=== PATIENT | female | born 1980 | race Two or more races ===

== ENCOUNTER 2018-07-29 00:37 | Emergency (ER) | payer OTHER ==
[2018-07-29 00:56] VITALS: TEMP 98.8; BMI 30.8
--- NOTE | 2018-07-29 01:11 | PDOC ---
Attending Attestation - HPI HPI: 07/29/18 01:15 The patient is a 37 year old female with no significant PMH who presents to the emergency department with irregular menstrual cycle. Patient states her menstrual periods are usually irregular and last for 5 days at a time. Patient reports her current menstrual period is lasting longer than usual, and is now on day 8. Her previous menstrual period was on July 03. Patient is complaining of associated right lower quadrant pain and urinary frequency. Patient denies any sexual activity. The patient denies chest pain, shortness of breath, headache and dizziness. Denies fever, chills, nausea, vomit, diarrhea and constipation. Denies vaginal discharge, dysuria, urgency and hematuria. Allergies: NKA Past surgical history: None reported. Social history: No reported alcohol, drug or cigarette use. <Michelle Canales - Last Filed: 07/29/18 01:15> - Resident Resident Name: Winifred Osei - ED Attending Attestation I have performed the following: I have examined & evaluated the patient, The case was reviewed & discussed with the resident, I agree w/resident's findings & plan - Physicial Exam PE: 07/29/18 03:05 Agree with resident exam - Medical Decision Making 07/29/18 03:05 Patient Name: DIGNA CRAIN THIS IS A PRELIMINARY REPORT FROM [facility] DATE OF SERVICE: 2018-07-29 01:13:14 IMAGES: 29 EXAM: ULTRASOUND PELVIS, COMPLETE AND DUPLEX SCAN PELVIS, COMPLETE No right ovarian torsion. Color flow with appropriate arterial and venous waveforms. 2.4 cm complex follicle right ovary. Left ovary not seen. No free fluid. Normal uterus. Endometrial stripe complex 4 mm thick. Unremarkable visualized portion of bladder 07/29/18 03:09 Pt will go home with a diagnosis of Dysfunctional Uterine Bleed. She will be asked to follow with [facility]. Labs are normal UCG negative. UA pending. <Keily Ly - Last Filed: 07/29/18 03:10>
--- NOTE | 2018-07-29 01:30 | PDOC ---
History of Present Illness <Keily Ly - Last Filed: 07/29/18 03:05> - History of Present Illness Initial Comments: 07/29/18 01:26 The patient is a 37 year old female with a PMH of DUB who presents to the ED c/ o vaginal bleeding. Patient states her menstrual cycle started on 06/20 and she has been bleeding since that time. Notes previous LMP was 07/03 and lasted her normal 5 days. Endorse associated suprapubic and LLQ cramping. Denies fevers/chills, dysuria/hematuria, increased urgency/frequency. No lifetime h/o sexual activity. NKDA Surgical: L hip dysplasia repair (childhood) Social: denies toxic habits PMD: <Winifred Osei - Last Filed: 07/29/18 03:20> - General Chief Complaint: Vaginal Bleeding Stated Complaint: VAGINAL BLEED Time Seen by Provider: 07/29/18 00:53 Past History <Keily Ly - Last Filed: 07/29/18 03:05> - Past Medical History COPD: No - Suicide/Smoking/Psychosocial Hx Smoking History: Never smoked <Winifred Osei - Last Filed: 07/29/18 03:20> - Past Medical History Allergies/Adverse Reactions: Allergies Allergy/AdvReac Type Severity Reaction Status Date / Time No Known Allergies Allergy Verified 07/29/18 00:51 Home Medications: Ambulatory Orders NK [No Known Home Medication] 07/29/18 Review of Systems - Review of Systems Constitutional: No: Chills, Fever Respiratory: No: Shortness of Breath Cardiac (ROS): No: Chest Pain, Lightheadedness, Palpitations, Syncope ABD/GI: Yes: Abdominal cramping. No: Constipated, Diarrhea, Nausea, Vomiting : Yes: Other (vaginal bleeding). No: Burning, Dysuria Psychiatric: No: Anxiety, Depression <Winifred Osei - Last Filed: 07/29/18 03:20> *Physical Exam - Vital Signs Last Vital Signs Temp Pulse Resp BP Pulse Ox 98.8 F 88 18 123/79 100 07/29/18 00:49 07/29/18 00:49 07/29/18 00:49 07/29/18 00:49 07/29/18 00:49 <Keily Ly - Last Filed: 07/29/18 03:05> - Vital Signs Last Vital Signs Temp Pulse Resp BP Pulse Ox 98.8 F 88 18 123/79 100 07/29/18 00:49 07/29/18 00:49 07/29/18 00:49 07/29/18 00:49 07/29/18 00:49 - Physical Exam General Appearance: Yes: Nourished, Appropriately Dressed HEENT: positive: Normal Voice, Hearing Grossly Normal Neck: positive: Trachea midline, Supple Respiratory/Chest: positive: Lungs Clear, Normal Breath Sounds Cardiovascular: positive: S1, S2. negative: Edema, JVD Gastrointestinal/Abdominal: positive: Normal Bowel Sounds, Soft Musculoskeletal: negative: CVA Tenderness (R), CVA Tenderness (L) Extremity: positive: Normal Capillary Refill, Normal Inspection Integumentary: positive: Normal Color, Dry, Warm Neurologic: positive: Fully Oriented, Alert <Winifred Osei - Last Filed: 07/29/18 03:20> Moderate Sedation - Procedure Monitoring Vital Signs: Procedure Monitoring Vital Signs Temperature 98.8 F 07/29/18 00:49 Pulse Rate 88 07/29/18 00:49 Respiratory Rate 18 07/29/18 00:49 Blood Pressure 123/79 07/29/18 00:49 O2 Sat by Pulse Oximetry (%) 100 07/29/18 00:49 <Keily Ly - Last Filed: 07/29/18 03:05> - Procedure Monitoring Vital Signs: Procedure Monitoring Vital Signs Temperature 98.8 F 07/29/18 00:49 Pulse Rate 88 07/29/18 00:49 Respiratory Rate 18 07/29/18 00:49 Blood Pressure 123/79 07/29/18 00:49 O2 Sat by Pulse Oximetry (%) 100 07/29/18 00:49 <Winifred Osei - Last Filed: 07/29/18 03:20> ED Treatment Course - LABORATORY CBC & Chemistry Diagram: 07/29/18 02:20 07/29/18 02:20 - ADDITIONAL ORDERS Additional order review: Laboratory Results 07/29/18 07/29/18 07/29/18 02:28 02:20 02:20 PT with INR 12.30 INR 1.04 Sodium 137 Potassium 3.7 Chloride 100 Carbon Dioxide 28 Anion Gap 9 BUN 9 Creatinine 0.6 Creat Clearance w eGFR > 60 Random Glucose 90 Calcium 9.2 Total Bilirubin 0.3 AST 12 L ALT 21 Alkaline Phosphatase 90 Total Protein 8.0 Albumin 4.1 Urine HCG, Qual Negative 07/29/18 02:20 RBC 4.64 MCV 71.4 L MCHC 33.5 RDW 16.1 H MPV 8.0 Neutrophils % 51.5 Lymphocytes % 35.8 Monocytes % 9.3 Eosinophils % 2.9 Basophils % 0.5 - RADIOLOGY Radiology Studies Ordered: Category Date Time Status PELVIC / BLADDER US [US] Stat Ultrasound 07/29/18 01:07 Taken <Keily Ly - Last Filed: 07/29/18 03:05> - LABORATORY CBC & Chemistry Diagram: 07/29/18 02:20 12 02:20 <Winifred Osei - Last Filed: 07/29/18 03:20> Medical Decision Making - Medical Decision Making 07/29/18 01:30 37 year old female with PMH of DUB presents c/o vaginal bleeding. VS Frontal diagnosis: DUB 2/2 to hormone derangement vs fibroids, with threatened AB, ectopic . Will obtain basic labs, abdominal U/S ( patient declines TVUS) urine . Reassess. 07/29/18 03:06 Abdominal U/S shows normal ovaries. No IUP Urine negative 07/29/18 03:12 Hb 11 UA shows 3+ blood As patient remains hemodynamically stable will discharge home with [facility] follow -up. Clinical Impression: Dysfunctional uterine bleeding. I discussed the physical exam findings, ancillary test results and final diagnoses with the patient. I answered all of the patient's questions. The patient was satisfied with the care received and felt comfortable with the discharge plan and treatment plan. The patient will return to the Emergency Department with any new, persistent or worsening symptoms. <Winifred Osei - Last Filed: 07/29/18 03:20> *DC/Admit/Observation/Transfer - Discharge Dispostion Decision to Admit order: No <Keily Ly - Last Filed: 07/29/18 03:05> <Winifred Osei - Last Filed: 07/29/18 03:20> Diagnosis at time of Disposition: Dysfunctional uterine bleeding - Discharge Dispostion Disposition: HOME Condition at time of disposition: Stable - Referrals Referrals: ON STAFF,NOT [Primary Care Provider] - Lupe Jeronimo MD [Staff Physician] - - Patient Instructions Additional Instructions: You were evaluated today for vaginal bleeding. All of your labs and an ultrasound show no concerning findings. You can take Motrin (up to 3200 mg daily) for your pain. Please make an appointment with an digital forensics investigator Dr. Jeronimo (contact information included) for further evaluation. Your care is not complete until you are evaluated by a digital forensics investigator. Return to the Emergency Department for any new/worsening/concerning symptoms. - Post Discharge Activity
[2018-07-29 02:28] LABS: BASO % 0.5 % (0-2.0); EOS % 2.9 % (0-4.5); HEMATOCRIT 33.1 % (32.4-45.2); HEMOGLOBIN 11.1 GM/dL (10.7-15.3); LYMPH % 35.8 % (8-40); MCH 23.9 pg (25.7-33.7); MCHC 33.5 g/dl (32.0-36.0); MEAN CELL VOLUME 71.4 fl (80-96); MONO % 9.3 % (3.8-10.2); NEUT % 51.5 % (42.8-82.8); PLATELET COUNT 324 K/MM3 (134-434); RBC 4.64 M/mm3 (3.60-5.2); RDW 16.1 % (11.6-15.6); WHITE BLOOD COUNT 7.6 K/mm3 (4.0-10.0)
[2018-07-29 02:43] LABS: HCG,QUALITATIVE URINE Negative
[2018-07-29 02:50] LABS: INR 1.04 (0.83-1.09); PROTHROMBIN TIME (PATIENT) 12.3 SEC (9.7-13.0)
[2018-07-29 03:05] LABS: ALBUMIN 4.1 g/dl (3.4-5.0); ALK PHOS 90 U/L (45-117); ANION GAP 9 MMOL/L (8-16); BILIRUBIN,TOTAL 0.3 mg/dL (0.2-1); BLOOD UREA NITROGEN 9 mg/dL (7-18); CALCIUM 9.2 mg/dL (8.5-10.1); CHLORIDE 100 mmol/L (98-107); CO2 28 mmol/L (21-32); CREATININE 0.6 mg/dL (0.55-1.3); GLUCOSE,RANDOM 90 mg/dL (74-106); POTASSIUM 3.7 mmol/L (3.5-5.1); SGOT/AST 12 U/L (15-37); SGPT/ALT 21 U/L (13-61); SODIUM 137 mmol/L (136-145)
[2018-07-29 03:07] LABS: URINE APPEARANCE CLEAR; URINE BILIRUBIN NEGATIVE (<2.0 mg/dL); URINE COLOR RED; URINE GLUCOSE (UA) NEGATIVE (NEGATIVE); URINE KETONE NEGATIVE (NEGATIVE); URINE LEUK ESTERASE NEGATIVE (NEGATIVE); URINE NITRITE NEGATIVE (NEGATIVE); URINE PROTEIN 2+ (NEGATIVE); URINE UROBILINOGEN NEGATIVE mg/dL (0.2-1.0)
[2018-07-29 03:18] LABS: EPI CELLS RARE /HPF (FEW); URINE BACTERIA RARE /hpf (NONE SEEN); URINE MUCUS RARE
[2018-07-29 03:28] VITALS: BP 121/72; PULSE 78
== END 2018-07-29 03:28 | disposition home or self-care (01) ==
LOC: JER 00:37
DX: N93.8 Other specified abnormal uterine and vaginal bleeding (principal)
CPT/HCPCS: 36415; 76856-TC; 80053; 81003; 81015; 84703; 85025; 85610; 99282-25

== ENCOUNTER 2020-08-06 20:56 | Inpatient (IN) | payer OTHER ==
[2020-08-06] MEDS ORDERED: ACETAMINOPHEN 1000 MG/100 ML VIAL (NON FORMULARY) IVPB ONE (21:34)
[2020-08-06] MEDS ORDERED: SODIUM CHLORIDE 1,000 ML IV STA (21:34)
[2020-08-06] MEDS ORDERED: ACETAMINOPHEN INJECTION 100 ML IVPB ONE (22:00)
[2020-08-06] MEDS ORDERED: PIPERACILLIN/TAZOB 4.5 GM 4.5 GM in DEXTROSE 5%-WATER 100 ML IVPB ONE (22:27)
[2020-08-06 22:35] LABS: BASO % 0.3 % (0-2.0); EOS % 0.2 % (0-4.5); HEMATOCRIT 35.5 % (32.4-45.2); LYMPH % 12.8 % (8-40); MCH 22.2 pg (25.7-33.7); MCHC 31.1 g/dl (32.0-36.0); MEAN CELL VOLUME 71.4 fl (80-96); MEAN PLT VOLUME 8.3 fl (7.5-11.1); MONO % 10.1 % (3.8-10.2); NEUT % 76.6 % (42.8-82.8); PLATELET COUNT 615 K/MM3 (134-434); RBC 4.96 M/mm3 (3.60-5.2)
[2020-08-06 22:42] LABS: INR 1.48 (0.83-1.09); PROTHROMBIN TIME (PATIENT) 17.7 SEC (9.7-13.0)
[2020-08-06] MEDS ORDERED: PIPERACILLIN/TAZOB 4.5 GM 4.5 GM/100 ML BAG IVPB ONE (22:42)
[2020-08-06 22:45] LABS: ACTIVATED PTT 28.9 SECONDS (25.2-36.5)
[2020-08-06 22:50] LABS: POTASSIUM 4.2 mmol/L (3.5-5.1)
[2020-08-06 22:52] LABS: ALBUMIN 3.3 g/dl (3.4-5.0); BLOOD UREA NITROGEN 3.5 mg/dL (7-18); CALCIUM 9.1 mg/dL (8.5-10.1); MAGNESIUM 1.9 mg/dL (1.8-2.4)
[2020-08-06 22:56] LABS: CREATININE 0.7 mg/dL (0.55-1.3)
[2020-08-06 22:57] LABS: BILIRUBIN,TOTAL 0.5 mg/dL (0.2-1); TOT PROT 8.2 g/dl (6.4-8.2)
[2020-08-06] MEDS ORDERED: FAMOTIDINE 20 MG/50 ML IVPB 20 MG/50 ML MG IVPB ONE (23:34)
[2020-08-06] MEDS ORDERED: MAG HYDROX/AL HYDROX/SIMETH -MYLANTA- ORAL SUSPENSION PO ONE (23:34)
[2020-08-07] MEDS ORDERED: MAG HYDROX/AL HYDROX/SIMETH 30 ML UNIT-DOSE CUP ONE (00:25)
[2020-08-07] MEDS ORDERED: FAMOTIDINE 20 MG/50 ML IVPB 20 MG/50 ML MG IVPB ONE (00:25)
[2020-08-07] MEDS ORDERED: SODIUM CHLORIDE 1,000 ML IV STA (01:51)
[2020-08-07 02:05] LABS: PH,URINE 5.5 (5.0-8.0); URINE APPEARANCE CLEAR; URINE BILIRUBIN NEGATIVE (NEGATIVE); URINE COLOR YELLOW; URINE GLUCOSE (UA) NEGATIVE (NEGATIVE); URINE KETONE NEGATIVE (NEGATIVE); URINE LEUK ESTERASE NEGATIVE (NEGATIVE); URINE NITRITE NEGATIVE (NEGATIVE); URINE PROTEIN NEGATIVE (NEGATIVE); URINE UROBILINOGEN 0.2 mg/dL (0.2-1.0)
[2020-08-07] MEDS ORDERED: IBUPROFEN 600 MG TABLET (FP) PO ONE ×2 (02:13→02:17)
[2020-08-07] MEDS ORDERED: DOXYCYCLINE HYCLATE 100 MG CAPSULE PO ONE (04:51)
[2020-08-07] MEDS: SODIUM CHLORIDE 1,000 ML IV SCH (05:47)
[2020-08-07 08:19] LABS: HEMATOCRIT 28.9 % (32.4-45.2); HEMOGLOBIN 8.9 GM/dL (10.7-15.3); MCH 21.8 pg (25.7-33.7); MCHC 30.7 g/dl (32.0-36.0); MEAN CELL VOLUME 71.1 fl (80-96); MEAN PLT VOLUME 8.3 fl (7.5-11.1); PLATELET COUNT 445 K/MM3 (134-434); RBC 4.07 M/mm3 (3.60-5.2); RDW 17.4 % (11.6-15.6); WHITE BLOOD COUNT 8.3 K/mm3 (4.0-10.0)
[2020-08-07 08:28] LABS: INR 1.53 (0.83-1.09); PROTHROMBIN TIME (PATIENT) 18.6 SEC (9.7-13.0)
[2020-08-07 08:31] LABS: ACTIVATED PTT 28.1 SECONDS (25.2-36.5); POTASSIUM 3.9 mmol/L (3.5-5.1)
[2020-08-07 08:32] LABS: ALBUMIN 2.6 g/dl (3.4-5.0); CALCIUM 8.1 mg/dL (8.5-10.1)
[2020-08-07 08:35] LABS: CREATININE 0.5 mg/dL (0.55-1.3); PHOSPHOROUS 3.6 mg/dL (2.5-4.9)
[2020-08-07 08:37] LABS: BILIRUBIN,TOTAL 0.5 mg/dL (0.2-1); TOT PROT 6.6 g/dl (6.4-8.2)
[2020-08-07] MEDS ORDERED: PIPERACILLIN/TAZOB 4.5 GM 4.5 GM in DEXTROSE 5%-WATER 100 ML IVPB SCH (09:00)
[2020-08-07] MEDS ORDERED: PIPERACILLIN/TAZOB 4.5 GM 4.5 GM/100 ML BAG IVPB ONE (09:28)
[2020-08-07] MEDS ORDERED: PIPERACILLIN/TAZOB 3.375 GM 3.375 GM/50 ML BAG IVPB ONE (17:26)
[2020-08-07] MEDS: PIPERACILLIN/TAZOB 3.375 GM 3.375 GM in DEXTROSE 5%-WATER - 50 ML IVPB SCH (17:41)
[2020-08-07] MEDS ORDERED: ACETAMINOPHEN INJECTION 100 ML IVPB ONE (18:59)
[2020-08-07] MEDS: ACETAMINOPHEN 1000 MG/100 ML VIAL (NON FORMULARY) IVPB PRN (19:06)
[2020-08-07] MEDS ORDERED: DOXYCYCLINE HYCLATE 100 MG VIAL ONE (21:55)
[2020-08-07] MEDS ORDERED: DEXTROSE 5%-WATER 100 ML IVPB ONE (21:55)
[2020-08-07] MEDS ORDERED: DOXYCYCLINE INJECTION 100 MG in DEXTROSE 5%-WATER - 100 ML IVPB SCH (22:00)
[2020-08-07] MEDS: DOXYCYCLINE INJECTION 100 MG in DEXTROSE 5%-WATER 100 ML IVPB SCH (22:06)
[2020-08-08] MEDS ORDERED: PIPERACILLIN/TAZOBACTAM 3.375 GM VIAL IVPB ONE ×3 (00:46→17:35)
[2020-08-08] MEDS ORDERED: DEXTROSE 5%-WATER - 50 ML IVPB ONE ×3 (00:46→17:36)
[2020-08-08] MEDS: ACETAMINOPHEN 1000 MG/100 ML VIAL (NON FORMULARY) IVPB PRN (01:00)
[2020-08-08] MEDS: PIPERACILLIN/TAZOB 3.375 GM 3.375 GM in DEXTROSE 5%-WATER - 50 ML IVPB SCH ×3 (02:40→18:09)
[2020-08-08] MEDS ORDERED: PIPERACILLIN/TAZOB 4.5 GM 4.5 GM in DEXTROSE 5%-WATER 100 ML IVPB SCH (09:00)
[2020-08-08 09:18] LABS: BASO % 0.4 % (0-2.0); EOS % 1.1 % (0-4.5); HEMATOCRIT 31.5 % (32.4-45.2); HEMOGLOBIN 9.6 GM/dL (10.7-15.3); LYMPH % 24.7 % (8-40); MCH 21.9 pg (25.7-33.7); MCHC 30.7 g/dl (32.0-36.0); MEAN CELL VOLUME 71.5 fl (80-96); MEAN PLT VOLUME 8.1 fl (7.5-11.1); NEUT % 65.8 % (42.8-82.8); PLATELET COUNT 550 K/MM3 (134-434); RDW 18.1 % (11.6-15.6); WHITE BLOOD COUNT 8.4 K/mm3 (4.0-10.0)
[2020-08-08 10:02] LABS: MAGNESIUM 2.1 mg/dL (1.8-2.4)
[2020-08-08 10:05] LABS: CREATININE 0.6 mg/dL (0.55-1.3); PHOSPHOROUS 3.8 mg/dL (2.5-4.9)
[2020-08-08 10:06] LABS: BILIRUBIN,TOTAL 0.6 mg/dL (0.2-1); TOT PROT 7.5 g/dl (6.4-8.2)
[2020-08-08] MEDS ORDERED: DEXTROSE 5%-WATER 100 ML IVPB ONE ×2 (10:26→21:04)
[2020-08-08] MEDS ORDERED: DOXYCYCLINE HYCLATE 100 MG VIAL ONE ×2 (10:26→21:04)
[2020-08-08] MEDS: DOXYCYCLINE INJECTION 100 MG in DEXTROSE 5%-WATER 100 ML IVPB SCH ×2 (10:36→21:22)
[2020-08-08] MEDS: SODIUM CHLORIDE 1,000 ML IV SCH (10:36)
[2020-08-08 10:48] LABS: ANISOCYTOSIS 1+; MACROCYTOSIS 0; PLATELET ESTIMATE INCREASED
[2020-08-08 12:18] LABS: HIV INTERPRETATION NEGATIVE (NEGATIVE)
[2020-08-08 12:29] LABS: BLOOD UREA NITROGEN 2.3 mg/dL (7-18)
[2020-08-09] MEDS ORDERED: DEXTROSE 5%-WATER - 50 ML IVPB ONE ×3 (00:58→17:49)
[2020-08-09] MEDS ORDERED: PIPERACILLIN/TAZOBACTAM 3.375 GM VIAL IVPB ONE ×3 (00:58→17:49)
[2020-08-09] MEDS: PIPERACILLIN/TAZOB 3.375 GM 3.375 GM in DEXTROSE 5%-WATER - 50 ML IVPB SCH ×3 (01:14→17:53)
[2020-08-09] MEDS ORDERED: DOXYCYCLINE HYCLATE 100 MG VIAL ONE ×2 (08:58→21:44)
[2020-08-09] MEDS ORDERED: DEXTROSE 5%-WATER 100 ML IVPB ONE ×2 (08:58→21:44)
[2020-08-09] MEDS: DOXYCYCLINE INJECTION 100 MG in DEXTROSE 5%-WATER 100 ML IVPB SCH ×2 (09:05→21:51)
[2020-08-09] MEDS: SODIUM CHLORIDE 1,000 ML IV SCH (10:19)
[2020-08-09 16:29] VITALS: BMI 29.7
[2020-08-09 16:49] LABS: BASO % 0.6 % (0-2.0); EOS % 1.1 % (0-4.5); HEMATOCRIT 28.4 % (32.4-45.2); LYMPH % 23.2 % (8-40); MCH 22.6 pg (25.7-33.7); MCHC 31.5 g/dl (32.0-36.0); MEAN CELL VOLUME 71.7 fl (80-96); MONO % 8.2 % (3.8-10.2); NEUT % 66.9 % (42.8-82.8); PLATELET COUNT 494 K/MM3 (134-434); RBC 3.97 M/mm3 (3.60-5.2); RDW 17.5 % (11.6-15.6); WHITE BLOOD COUNT 7.2 K/mm3 (4.0-10.0)
[2020-08-09 17:12] LABS: POTASSIUM 3.6 mmol/L (3.5-5.1)
[2020-08-09 17:15] LABS: CALCIUM 8.4 mg/dL (8.5-10.1)
[2020-08-09 17:18] LABS: CREATININE 0.4 mg/dL (0.55-1.3)
[2020-08-09] MEDS: D5-1/2NS+10 MEQ KCL - 10 MEQ/1,000 ML INFUS.BAG IV SCH (18:03)
[2020-08-10] MEDS ORDERED: PIPERACILLIN/TAZOBACTAM 3.375 GM VIAL IVPB ONE ×3 (02:15→17:18)
[2020-08-10] MEDS ORDERED: DEXTROSE 5%-WATER - 50 ML IVPB ONE ×3 (02:16→17:19)
[2020-08-10] MEDS: PIPERACILLIN/TAZOB 3.375 GM 3.375 GM in DEXTROSE 5%-WATER - 50 ML IVPB SCH ×3 (02:21→17:27)
[2020-08-10] MEDS ORDERED: PT OWN MED DRAWER 7, Y5N ONE (09:38)
[2020-08-10] MEDS: ENOXAPARIN NA (PORCINE) 40 MG/0.4 ML DISP.SYRIN SQ SCH (09:49)
[2020-08-10 09:52] LABS: POTASSIUM 3.8 mmol/L (3.5-5.1)
[2020-08-10 09:53] LABS: BASO % 0.6 % (0-2.0); EOS % 1.6 % (0-4.5); HEMATOCRIT 29.1 % (32.4-45.2); HEMOGLOBIN 9.2 GM/dL (10.7-15.3); LYMPH % 20.1 % (8-40); MCH 22.5 pg (25.7-33.7); MCHC 31.8 g/dl (32.0-36.0); MEAN CELL VOLUME 70.8 fl (80-96); MEAN PLT VOLUME 7.7 fl (7.5-11.1); MONO % 8.9 % (3.8-10.2); NEUT % 68.8 % (42.8-82.8); PLATELET COUNT 522 K/MM3 (134-434); RBC 4.11 M/mm3 (3.60-5.2); RDW 17.3 % (11.6-15.6); WHITE BLOOD COUNT 7.3 K/mm3 (4.0-10.0)
[2020-08-10 10:16] LABS: ALBUMIN 2.5 g/dl (3.4-5.0); CALCIUM 8.6 mg/dL (8.5-10.1)
[2020-08-10 10:19] LABS: CREATININE 0.4 mg/dL (0.55-1.3)
[2020-08-10 10:21] LABS: BILIRUBIN,TOTAL 0.6 mg/dL (0.2-1); TOT PROT 6.9 g/dl (6.4-8.2)
[2020-08-10 10:32] LABS: BLOOD UREA NITROGEN 1.4 mg/dL (7-18)
[2020-08-10] MEDS: DOXYCYCLINE INJECTION 100 MG in DEXTROSE 5%-WATER 100 ML IVPB SCH ×2 (12:22→21:38)
[2020-08-10 13:52] LABS: ERYTHROCYTE SEDIMENTATION RATE 87 mm/hr (0-20)
[2020-08-10] MEDS: D5-1/2NS+10 MEQ KCL - 10 MEQ/1,000 ML INFUS.BAG IV SCH (17:47)
[2020-08-10] MEDS ORDERED: DEXTROSE 5%-WATER 100 ML IVPB ONE (21:19)
[2020-08-10] MEDS ORDERED: DOXYCYCLINE HYCLATE 100 MG VIAL ONE (21:19)
[2020-08-11] MEDS ORDERED: PIPERACILLIN/TAZOBACTAM 3.375 GM VIAL IVPB ONE ×3 (02:07→17:01)
[2020-08-11] MEDS ORDERED: DEXTROSE 5%-WATER - 50 ML IVPB ONE ×3 (02:07→17:01)
[2020-08-11] MEDS: PIPERACILLIN/TAZOB 3.375 GM 3.375 GM in DEXTROSE 5%-WATER - 50 ML IVPB SCH ×3 (02:09→18:11)
[2020-08-11 09:38] LABS: BASO % 0.9 % (0-2.0); EOS % 3.5 % (0-4.5); HEMATOCRIT 28.5 % (32.4-45.2); HEMOGLOBIN 9.1 GM/dL (10.7-15.3); LYMPH % 22.2 % (8-40); MCH 22.5 pg (25.7-33.7); MCHC 31.9 g/dl (32.0-36.0); MEAN CELL VOLUME 70.6 fl (80-96); MEAN PLT VOLUME 7.7 fl (7.5-11.1); MONO % 10.8 % (3.8-10.2); NEUT % 62.6 % (42.8-82.8); PLATELET COUNT 499 K/MM3 (134-434); RBC 4.03 M/mm3 (3.60-5.2); RDW 17.6 % (11.6-15.6); WHITE BLOOD COUNT 5.8 K/mm3 (4.0-10.0)
[2020-08-11 09:55] LABS: CHLORIDE 102 mmol/L (98-107); POTASSIUM 3.5 mmol/L (3.5-5.1); SODIUM 137 mmol/L (136-145)
[2020-08-11 09:58] LABS: ALBUMIN 2.6 g/dl (3.4-5.0); CALCIUM 8.6 mg/dL (8.5-10.1)
[2020-08-11 09:59] LABS: ANION GAP 11 MMOL/L (8-16); CO2 25 mmol/L (21-32); GLUCOSE,RANDOM 109 mg/dL (74-106)
[2020-08-11 10:02] LABS: CREATININE 0.4 mg/dL (0.55-1.3); SGOT/AST 9 U/L (15-37); SGPT/ALT 7 U/L (13-61)
[2020-08-11 10:04] LABS: BILIRUBIN,TOTAL 0.8 mg/dL (0.2-1); TOT PROT 6.9 g/dl (6.4-8.2)
[2020-08-11 10:05] LABS: ALK PHOS 58 U/L (45-117)
[2020-08-11 10:07] LABS: BLOOD UREA NITROGEN < 1.0 mg/dL (7-18)
[2020-08-11] MEDS: ENOXAPARIN NA (PORCINE) 40 MG/0.4 ML DISP.SYRIN SQ SCH (10:31)
[2020-08-11] MEDS: DOXYCYCLINE INJECTION 100 MG in DEXTROSE 5%-WATER 100 ML IVPB SCH ×2 (10:31→22:10)
[2020-08-11] MEDS: D5-1/2NS+10 MEQ KCL - 10 MEQ/1,000 ML INFUS.BAG IV SCH ×2 (18:12→20:56)
[2020-08-11] MEDS ORDERED: DOXYCYCLINE HYCLATE 100 MG VIAL ONE (20:49)
[2020-08-11] MEDS ORDERED: DEXTROSE 5%-WATER 100 ML IVPB ONE (20:49)
[2020-08-12] MEDS ORDERED: PIPERACILLIN/TAZOBACTAM 3.375 GM VIAL IVPB ONE ×3 (00:34→16:28)
[2020-08-12] MEDS ORDERED: DEXTROSE 5%-WATER - 50 ML IVPB ONE ×3 (00:35→16:28)
[2020-08-12] MEDS: PIPERACILLIN/TAZOB 3.375 GM 3.375 GM in DEXTROSE 5%-WATER - 50 ML IVPB SCH ×3 (01:00→17:14)
[2020-08-12 09:06] LABS: HEMATOCRIT 29.4 % (32.4-45.2); HEMOGLOBIN 9.4 GM/dL (10.7-15.3); MCH 22.8 pg (25.7-33.7); MCHC 31.9 g/dl (32.0-36.0); MEAN CELL VOLUME 71.6 fl (80-96); MEAN PLT VOLUME 7.8 fl (7.5-11.1); PLATELET COUNT 489 K/MM3 (134-434); RBC 4.11 M/mm3 (3.60-5.2); RDW 17.3 % (11.6-15.6); WHITE BLOOD COUNT 4.8 K/mm3 (4.0-10.0)
[2020-08-12] MEDS ORDERED: DOXYCYCLINE HYCLATE 100 MG VIAL ONE ×2 (09:34→21:00)
[2020-08-12] MEDS ORDERED: DEXTROSE 5%-WATER 100 ML IVPB ONE ×2 (09:34→21:00)
[2020-08-12] MEDS: DOXYCYCLINE INJECTION 100 MG in DEXTROSE 5%-WATER 100 ML IVPB SCH ×2 (09:46→21:19)
[2020-08-12 09:49] LABS: CHLORIDE 106 mmol/L (98-107); POTASSIUM 3.5 mmol/L (3.5-5.1); SODIUM 142 mmol/L (136-145)
[2020-08-12] MEDS: ENOXAPARIN NA (PORCINE) 40 MG/0.4 ML DISP.SYRIN SQ SCH (09:49)
[2020-08-12 10:15] LABS: ALBUMIN 2.6 g/dl (3.4-5.0); CALCIUM 9.1 mg/dL (8.5-10.1)
[2020-08-12 10:16] LABS: ANION GAP 10 MMOL/L (8-16); CO2 25 mmol/L (21-32); GLUCOSE,RANDOM 110 mg/dL (74-106)
[2020-08-12 10:17] LABS: SGOT/AST 10 U/L (15-37); SGPT/ALT 7 U/L (13-61); TOT PROT 7.1 g/dl (6.4-8.2)
[2020-08-12 10:18] LABS: CREATININE 0.5 mg/dL (0.55-1.3)
[2020-08-12 10:19] LABS: ALK PHOS 58 U/L (45-117)
[2020-08-12 10:44] LABS: BILIRUBIN,TOTAL 0.5 mg/dL (0.2-1)
[2020-08-12 11:38] LABS: BLOOD UREA NITROGEN < 1.0 mg/dL (7-18)
[2020-08-12] MEDS ORDERED: ACETAMINOPHEN 1000 MG/100 ML VIAL (NON FORMULARY) IVPB ONE (11:57)
[2020-08-12] MEDS ORDERED: BENZOCAINE/MENTH/CETYLPYRD CL 1 EACH LOZENGE MM ONE (22:29)
[2020-08-13] MEDS ORDERED: PIPERACILLIN/TAZOBACTAM 3.375 GM VIAL IVPB ONE ×3 (00:28→16:47)
[2020-08-13] MEDS ORDERED: DEXTROSE 5%-WATER - 50 ML IVPB ONE ×3 (00:29→16:47)
[2020-08-13] MEDS: PIPERACILLIN/TAZOB 3.375 GM 3.375 GM in DEXTROSE 5%-WATER - 50 ML IVPB SCH ×3 (01:15→17:35)
[2020-08-13] MEDS ORDERED: PT OWN MED DRAWER 7, Y5N ONE ×5 (06:23→21:32)
[2020-08-13 08:39] LABS: HEMATOCRIT 30.2 % (32.4-45.2); HEMOGLOBIN 9.4 GM/dL (10.7-15.3); MCH 22.5 pg (25.7-33.7); MCHC 31.2 g/dl (32.0-36.0); MEAN PLT VOLUME 7.8 fl (7.5-11.1); PLATELET COUNT 448 K/MM3 (134-434); RBC 4.19 M/mm3 (3.60-5.2); RDW 18.3 % (11.6-15.6); WHITE BLOOD COUNT 5.7 K/mm3 (4.0-10.0)
[2020-08-13 08:54] LABS: POTASSIUM 3.7 mmol/L (3.5-5.1)
[2020-08-13 08:58] LABS: ALBUMIN 2.8 g/dl (3.4-5.0); CALCIUM 9.2 mg/dL (8.5-10.1)
[2020-08-13 09:01] LABS: CREATININE 0.5 mg/dL (0.55-1.3)
[2020-08-13 09:03] LABS: BILIRUBIN,TOTAL 0.6 mg/dL (0.2-1); TOT PROT 7.2 g/dl (6.4-8.2)
[2020-08-13] MEDS ORDERED: DOXYCYCLINE HYCLATE 100 MG VIAL ONE ×2 (09:52→20:59)
[2020-08-13] MEDS ORDERED: DEXTROSE 5%-WATER 100 ML IVPB ONE ×2 (09:53→20:59)
[2020-08-13] MEDS: DOXYCYCLINE INJECTION 100 MG in DEXTROSE 5%-WATER 100 ML IVPB SCH ×2 (09:55→21:25)
[2020-08-13] MEDS: ENOXAPARIN NA (PORCINE) 40 MG/0.4 ML DISP.SYRIN SQ SCH (09:56)
[2020-08-13] MEDS: ACETAMINOPHEN 325 MG TABLET (FP) PO PRN ×2 (10:38→17:40)
[2020-08-13] MEDS: BENZOCAINE/MENTH/CETYLPYRD CL 1 EACH LOZENGE MM PRN ×2 (15:44→21:33)
[2020-08-13] MEDS: D5-1/2NS+10 MEQ KCL - 10 MEQ/1,000 ML INFUS.BAG IV SCH (21:33)
[2020-08-14] MEDS ORDERED: PIPERACILLIN/TAZOBACTAM 3.375 GM VIAL IVPB ONE ×2 (00:34→11:08)
[2020-08-14] MEDS ORDERED: DEXTROSE 5%-WATER - 50 ML IVPB ONE ×2 (00:35→11:08)
[2020-08-14] MEDS: PIPERACILLIN/TAZOB 3.375 GM 3.375 GM in DEXTROSE 5%-WATER - 50 ML IVPB SCH ×2 (02:54→11:59)
[2020-08-14] MEDS ORDERED: PT OWN MED DRAWER 7, Y5N ONE ×3 (04:19→07:57)
[2020-08-14] MEDS: BENZOCAINE/MENTH/CETYLPYRD CL 1 EACH LOZENGE MM PRN ×3 (04:20→14:08)
[2020-08-14] MEDS: ACETAMINOPHEN 325 MG TABLET (FP) PO PRN ×2 (05:08→12:01)
[2020-08-14 06:47] VITALS: TEMP 98.1
[2020-08-14 10:56] LABS: HEMATOCRIT 31.3 % (32.4-45.2); HEMOGLOBIN 9.9 GM/dL (10.7-15.3); MCH 22.5 pg (25.7-33.7); MCHC 31.5 g/dl (32.0-36.0); MEAN CELL VOLUME 71.5 fl (80-96); MEAN PLT VOLUME 7.3 fl (7.5-11.1); PLATELET COUNT 439 K/MM3 (134-434); RBC 4.38 M/mm3 (3.60-5.2); RDW 18.1 % (11.6-15.6); WHITE BLOOD COUNT 6.6 K/mm3 (4.0-10.0)
[2020-08-14] MEDS ORDERED: DEXTROSE 5%-WATER 100 ML IVPB ONE (11:07)
[2020-08-14] MEDS ORDERED: DOXYCYCLINE HYCLATE 100 MG VIAL ONE (11:07)
[2020-08-14 11:19] LABS: POTASSIUM 3.4 mmol/L (3.5-5.1)
[2020-08-14 11:21] LABS: ALBUMIN 2.8 g/dl (3.4-5.0)
[2020-08-14 11:25] LABS: CREATININE 0.5 mg/dL (0.55-1.3)
[2020-08-14 11:26] LABS: BILIRUBIN,TOTAL 0.4 mg/dL (0.2-1)
[2020-08-14 11:30] LABS: TOT PROT 7.5 g/dl (6.4-8.2)
[2020-08-14] MEDS: DOXYCYCLINE INJECTION 100 MG in DEXTROSE 5%-WATER 100 ML IVPB SCH (11:58)
[2020-08-14 12:10] LABS: BLOOD UREA NITROGEN 1.3 mg/dL (7-18)
[2020-08-14] MEDS: ENOXAPARIN NA (PORCINE) 40 MG/0.4 ML DISP.SYRIN SQ SCH (14:08)
[2020-08-14 15:00] VITALS: BP 110/68; PULSE 90
[2020-08-14] MEDS ORDERED: ERTAPENEM SODIUM 1 GM in SODIUM CHLORIDE 50 ML IVPB ONE (15:30)
[2020-08-14] MEDS: D5-1/2NS+10 MEQ KCL - 10 MEQ/1,000 ML INFUS.BAG IV SCH (18:01)
== END 2020-08-14 19:23 | disposition home or self-care (01) | DRG 720 ==
LOC: JER 20:56 → JERBED 08-07 02:48 → J5S 08-07 21:22 → J6S 08-09 11:00
PROVIDERS: ADMIT Hospitalist; ATTEND Internal Medicine
PROC: 0W9J30Z Drainage of Pelvic Cavity with Drainage Device, Percutaneous Approach (ICD-10-PCS; principal; 2020-08-07)
PROC: 0WPJX0Z Removal of Drainage Device from Pelvic Cavity, External Approach (ICD-10-PCS; 2020-08-14)
DX: A41.89 Other specified sepsis (principal); K57.20 Diverticulitis of large intestine with perforation and abscess without bleeding; R00.0 Tachycardia, unspecified; R50.9 Fever, unspecified; E87.1 Hypo-osmolality and hyponatremia; M41.9 Scoliosis, unspecified; D25.9 Leiomyoma of uterus, unspecified; R19.7 Diarrhea, unspecified; Q65.89 Other specified congenital deformities of hip; D50.9 Iron deficiency anemia, unspecified; F41.9 Anxiety disorder, unspecified; K59.00 Constipation, unspecified
CPT/HCPCS: 36415; 49407; 71045-TC-FY; 74177-TC; 80048; 80053; 81003; 82728; 82962; 83540; 83550; 83735; 84100; 84703; 85025; 85027; 85045; 85610; 85651; 85730; 86140; 86850; 86900; 86901; 87040; 87045; 87046; 87070; 87075; 87086; 87102; 87116; 87177; 87205; 87206; 87209; 87210; 87324; 87389; 87449; 87491; 87536; 87591; 87880; 87899; 93005; 93010; 99285-25; A4358; C1729; C1769; C9803; J0131; Q9967; U0003

== ENCOUNTER 2020-08-15 11:32 | Day surgery (SDC) | payer OTHER ==
[2020-08-15] MEDS ORDERED: ERTAPENEM SODIUM 1 GM in SODIUM CHLORIDE 50 ML IVPB ONE (13:00)
[2020-08-15] MEDS ORDERED: ERTAPENEM SODIUM 1 GM VIAL ONE (13:03)
[2020-08-15] MEDS ORDERED: SODIUM CHLORIDE 50 ML IVPB ONE (13:04)
[2020-08-15 14:26] LABS: BASO % 0.7 % (0-2.0); EOS % 2.6 % (0-4.5); HEMATOCRIT 32.6 % (32.4-45.2); HEMOGLOBIN 10.2 GM/dL (10.7-15.3); LYMPH % 28.8 % (8-40); MCH 22.3 pg (25.7-33.7); MCHC 31.1 g/dl (32.0-36.0); MEAN CELL VOLUME 71.8 fl (80-96); MEAN PLT VOLUME 7.9 fl (7.5-11.1); MONO % 9.6 % (3.8-10.2); NEUT % 58.3 % (42.8-82.8); PLATELET COUNT 415 K/MM3 (134-434); RBC 4.55 M/mm3 (3.60-5.2); RDW 18.6 % (11.6-15.6); WHITE BLOOD COUNT 6.9 K/mm3 (4.0-10.0)
[2020-08-15 14:29] VITALS: BP 122/74; PULSE 104; TEMP 98
[2020-08-15 14:42] LABS: POTASSIUM 3.6 mmol/L (3.5-5.1)
[2020-08-15 14:44] LABS: ALBUMIN 3.1 g/dl (3.4-5.0); BLOOD UREA NITROGEN 4.8 mg/dL (7-18); CALCIUM 9.2 mg/dL (8.5-10.1); MAGNESIUM 2.1 mg/dL (1.8-2.4)
[2020-08-15 14:48] LABS: CREATININE 0.5 mg/dL (0.55-1.3); PHOSPHOROUS 3.1 mg/dL (2.5-4.9)
[2020-08-15 14:49] LABS: BILIRUBIN,TOTAL 0.4 mg/dL (0.2-1); TOT PROT 7.9 g/dl (6.4-8.2)
== END 2020-08-15 14:05 | disposition home or self-care (01) ==
LOC: JINFUSION 11:32 → J7W 11:34 → JINFUSION 14:05
PROVIDERS: ATTEND Internal Medicine
DX: A41.9 Sepsis, unspecified organism (principal); K57.80 Diverticulitis of intestine, part unspecified, with perforation and abscess without bleeding; D25.9 Leiomyoma of uterus, unspecified
CPT/HCPCS: 36415; 80053; 83735; 84100; 85025; 96365

== ENCOUNTER 2020-08-16 12:56 | Day surgery (SDC) | payer OTHER ==
[2020-08-16] MEDS ORDERED: ERTAPENEM SODIUM 1 GM in SODIUM CHLORIDE 50 ML IVPB ONE (13:00)
[2020-08-16] MEDS ORDERED: SODIUM CHLORIDE 50 ML IVPB ONE (13:32)
[2020-08-16] MEDS ORDERED: ERTAPENEM SODIUM 1 GM VIAL ONE (13:32)
[2020-08-16 14:44] VITALS: BP 144/88; PULSE 88; TEMP 98.5
== END 2020-08-16 14:55 | disposition home or self-care (01) ==
LOC: JINFUSION 12:56 → J7W 12:56 → JINFUSION 14:55
PROVIDERS: ATTEND Internal Medicine
DX: A41.9 Sepsis, unspecified organism (principal); K57.80 Diverticulitis of intestine, part unspecified, with perforation and abscess without bleeding; D25.9 Leiomyoma of uterus, unspecified
CPT/HCPCS: 96365

== ENCOUNTER 2020-08-17 05:04 | Day surgery (SDC) | payer OTHER ==
[2020-08-17] MEDS ORDERED: ERTAPENEM SODIUM 1 GM in SODIUM CHLORIDE 50 ML IVPB ONE ×3 (11:40→13:00)
[2020-08-17] MEDS ORDERED: ERTAPENEM SODIUM 1 GM VIAL ONE (11:40)
[2020-08-17 12:06] VITALS: TEMP 98
[2020-08-17 15:23] VITALS: BP 123/70; PULSE 100
[2020-08-20 14:11] LABS: HEMATOCRIT 33.8 % (32.4-45.2); HEMOGLOBIN 10.6 GM/dL (10.7-15.3); MCH 22.5 pg (25.7-33.7); MCHC 31.2 g/dl (32.0-36.0); MEAN CELL VOLUME 72.2 fl (80-96); MEAN PLT VOLUME 8.5 fl (7.5-11.1); PLATELET COUNT 326 K/MM3 (134-434); RBC 4.68 M/mm3 (3.60-5.2); RDW 19.2 % (11.6-15.6); WHITE BLOOD COUNT 4.4 K/mm3 (4.0-10.0)
[2020-08-20 14:30] LABS: POTASSIUM 4.4 mmol/L (3.5-5.1)
[2020-08-20 14:33] LABS: ALBUMIN 3.1 g/dl (3.4-5.0); BLOOD UREA NITROGEN 3.8 mg/dL (7-18); CALCIUM 9.2 mg/dL (8.5-10.1)
[2020-08-20 14:36] LABS: CREATININE 0.4 mg/dL (0.55-1.3); PHOSPHOROUS 2.6 mg/dL (2.5-4.9)
[2020-08-20 14:37] LABS: BILIRUBIN,TOTAL 0.4 mg/dL (0.2-1)
[2020-08-20 14:38] LABS: TOT PROT 7.8 g/dl (6.4-8.2)
== END 2020-08-17 12:25 | disposition home or self-care (01) ==
LOC: JINFUSION 05:04
PROVIDERS: ATTEND Internal Medicine
DX: A41.9 Sepsis, unspecified organism (principal); K57.80 Diverticulitis of intestine, part unspecified, with perforation and abscess without bleeding; D25.9 Leiomyoma of uterus, unspecified
CPT/HCPCS: 36415; 80053; 83735; 84100; 85027; 96365

== ENCOUNTER 2020-08-18 12:19 | Day surgery (SDC) | payer OTHER ==
[2020-08-18] MEDS ORDERED: ERTAPENEM SODIUM 1 GM in SODIUM CHLORIDE 50 ML IVPB ONE (12:30)
[2020-08-18] MEDS ORDERED: ERTAPENEM SODIUM 1 GM VIAL ONE (12:31)
[2020-08-18] MEDS ORDERED: SODIUM CHLORIDE 50 ML IVPB ONE (12:31)
[2020-08-18 14:14] VITALS: BP 120/83; PULSE 95; TEMP 97.8
== END 2020-08-18 14:14 | disposition home or self-care (01) ==
LOC: JINFUSION 12:19 → J7W 12:20 → JINFUSION 14:14
PROVIDERS: ATTEND Internal Medicine
DX: A41.9 Sepsis, unspecified organism (principal); K57.80 Diverticulitis of intestine, part unspecified, with perforation and abscess without bleeding; D25.9 Leiomyoma of uterus, unspecified
CPT/HCPCS: 96365

== ENCOUNTER 2020-08-19 04:26 | Day surgery (SDC) | payer OTHER ==
[2020-08-19] MEDS ORDERED: ERTAPENEM SODIUM 1 GM VIAL ONE (13:01)
[2020-08-19] MEDS ORDERED: ERTAPENEM SODIUM 1 GM in SODIUM CHLORIDE 100 ML IVPB ONE (13:15)
[2020-08-19 13:17] VITALS: TEMP 97.9
[2020-08-19 13:55] VITALS: BP 112/76; PULSE 86
== END 2020-08-19 13:55 | disposition home or self-care (01) ==
LOC: JINFUSION 04:26
PROVIDERS: ATTEND Internal Medicine
DX: A41.9 Sepsis, unspecified organism (principal); K57.80 Diverticulitis of intestine, part unspecified, with perforation and abscess without bleeding; D25.9 Leiomyoma of uterus, unspecified
CPT/HCPCS: 96365

== ENCOUNTER 2020-08-20 12:15 | Day surgery (SDC) | payer OTHER ==
[~2020-08-20 12:15] MED LIST: ERTAPENEM SODIUM 1 GM in SODIUM CHLORIDE 50 ML IVPB ONE
[2020-08-20] MEDS ORDERED: ERTAPENEM SODIUM 1 GM VIAL ONE (12:18)
[2020-08-20] MEDS ORDERED: SODIUM CHLORIDE 50 ML IVPB ONE (12:18)
[2020-08-20 16:37] VITALS: PULSE 103; TEMP 98.1
[2020-08-20 16:38] VITALS: BP 94/55
== END 2020-08-20 13:25 | disposition home or self-care (01) ==
LOC: JINFUSION 12:15 → J7W 12:16 → JINFUSION 13:25
PROVIDERS: ATTEND Internal Medicine
DX: A41.9 Sepsis, unspecified organism (principal); K57.80 Diverticulitis of intestine, part unspecified, with perforation and abscess without bleeding; D25.9 Leiomyoma of uterus, unspecified
CPT/HCPCS: 96365

== ENCOUNTER 2020-08-21 13:11 | Day surgery (SDC) | payer OTHER ==
[2020-08-21] MEDS ORDERED: ERTAPENEM SODIUM 1 GM in SODIUM CHLORIDE 50 ML IVPB ONE (13:30)
[2020-08-21] MEDS ORDERED: SODIUM CHLORIDE 50 ML IVPB ONE (13:54)
[2020-08-21] MEDS ORDERED: ERTAPENEM SODIUM 1 GM VIAL ONE (13:54)
[2020-08-21 15:30] VITALS: BP 104/68; PULSE 105; TEMP 98
== END 2020-08-21 15:31 | disposition home or self-care (01) ==
LOC: JINFUSION 13:11 → J7W 13:11 → JINFUSION 15:31
PROVIDERS: ATTEND Internal Medicine
DX: A41.9 Sepsis, unspecified organism (principal); K57.80 Diverticulitis of intestine, part unspecified, with perforation and abscess without bleeding; D25.9 Leiomyoma of uterus, unspecified
CPT/HCPCS: 96365

== ENCOUNTER 2020-08-22 12:30 | Day surgery (SDC) | payer OTHER ==
[2020-08-22] MEDS ORDERED: SODIUM CHLORIDE 50 ML IVPB ONE (13:08)
[2020-08-22] MEDS ORDERED: ERTAPENEM SODIUM 1 GM VIAL ONE (13:08)
[2020-08-22] MEDS ORDERED: ERTAPENEM SODIUM 1 GM in SODIUM CHLORIDE 50 ML IVPB ONE (13:30)
[2020-08-22 13:39] VITALS: BP 116/69; PULSE 71; TEMP 97.9
== END 2020-08-22 14:10 | disposition home or self-care (01) ==
LOC: J7W 12:30 → JINFUSION 12:30
PROVIDERS: ATTEND Internal Medicine
PROC: 3E033GC Introduction of Other Therapeutic Substance into Peripheral Vein, Percutaneous Approach (ICD-10-PCS; principal; 2020-08-22)
DX: K57.80 Diverticulitis of intestine, part unspecified, with perforation and abscess without bleeding (principal)
CPT/HCPCS: 96365

== ENCOUNTER 2020-09-17 21:26 | Inpatient (IN) | payer OTHER ==
[2020-09-17] MEDS ORDERED: LACTATED RINGERS SOLUTION 1000 ML INFUS.BAG IV ONE (22:29)
[2020-09-17] MEDS ORDERED: ACETAMINOPHEN 1000 MG/100 ML VIAL (NON FORMULARY) IVPB ONE (22:29)
[2020-09-17] MEDS ORDERED: ACETAMINOPHEN INJECTION 100 ML IVPB ONE (22:44)
[2020-09-17 23:22] LABS: BASO % 0.6 % (0-2.0); EOS % 1.4 % (0-4.5); HEMATOCRIT 31.3 % (32.4-45.2); HEMOGLOBIN 9.9 GM/dL (10.7-15.3); LYMPH % 25.2 % (8-40); MCHC 31.8 g/dl (32.0-36.0); MEAN CELL VOLUME 72.3 fl (80-96); MEAN PLT VOLUME 7.7 fl (7.5-11.1); MONO % 8.6 % (3.8-10.2); NEUT % 64.2 % (42.8-82.8); PLATELET COUNT 445 K/MM3 (134-434); RBC 4.33 M/mm3 (3.60-5.2); RDW 18.3 % (11.6-15.6); WHITE BLOOD COUNT 7.6 K/mm3 (4.0-10.0)
[2020-09-17 23:26] LABS: EPI CELLS 25 /uL (0-25.1); HYALINE CASTS 2 /uL (0-3.1); PH,URINE 5.5 (5.0-8.0); URINE APPEARANCE CLEAR; URINE BACTERIA 67 /uL (0-1359); URINE BILIRUBIN NEGATIVE (NEGATIVE); URINE COLOR YELLOW; URINE GLUCOSE (UA) NEGATIVE (NEGATIVE); URINE KETONE 1+ (NEGATIVE); URINE LEUK ESTERASE 2+ (NEGATIVE); URINE NITRITE NEGATIVE (NEGATIVE); URINE PROTEIN TRACE (NEGATIVE); URINE RBC 163 /uL (0-23.9); URINE UROBILINOGEN 0.2 mg/dL (0.2-1.0); URINE WBC 116 /uL (0-25.8)
[2020-09-17 23:32] LABS: INR 1.15 (0.83-1.09); PROTHROMBIN TIME (PATIENT) 13.9 SEC (9.7-13.0)
[2020-09-17 23:35] LABS: ACTIVATED PTT 27.8 SECONDS (25.2-36.5)
[2020-09-17 23:41] LABS: POTASSIUM 4.1 mmol/L (3.5-5.1)
[2020-09-17 23:43] LABS: CALCIUM 9.3 mg/dL (8.5-10.1)
[2020-09-17 23:44] LABS: ALBUMIN 3.5 g/dl (3.4-5.0); BLOOD UREA NITROGEN 11.3 mg/dL (7-18)
[2020-09-17 23:47] LABS: CREATININE 0.7 mg/dL (0.55-1.3)
[2020-09-17 23:48] LABS: BILIRUBIN,TOTAL 0.5 mg/dL (0.2-1); TOT PROT 8.2 g/dl (6.4-8.2)
[2020-09-18] MEDS ORDERED: PIPERACILLIN/TAZOB 3.375 GM 3.375 GM in DEXTROSE 5%-WATER - 50 ML IVPB ONE (01:37)
[2020-09-18] MEDS ORDERED: PIPERACILLIN/TAZOB 3.375 GM 4.5 GM in DEXTROSE 5%-WATER - 50 ML IVPB ONE (01:58)
[2020-09-18] MEDS ORDERED: PIPERACILLIN/TAZOB 4.5 GM 4.5 GM/100 ML BAG IVPB ONE ×2 (02:02→09:02)
[2020-09-18] MEDS ORDERED: MORPHINE SULFATE 2 MG/ML VIAL IVPUSH PRN (03:24)
[2020-09-18] MEDS ORDERED: ACETAMINOPHEN INJECTION 100 ML IVPB ONE ×2 (07:47→14:24)
[2020-09-18] MEDS: ACETAMINOPHEN 1000 MG/100 ML VIAL (NON FORMULARY) IVPB PRN ×2 (07:55→14:23)
[2020-09-18 08:58] LABS: BASO % 0.5 % (0-2.0); EOS % 2.6 % (0-4.5); HEMATOCRIT 26.5 % (32.4-45.2); HEMOGLOBIN 8.8 GM/dL (10.7-15.3); INR 1.17 (0.83-1.09); MCH 23.7 pg (25.7-33.7); MCHC 33.2 g/dl (32.0-36.0); MEAN CELL VOLUME 71.4 fl (80-96); MEAN PLT VOLUME 7.7 fl (7.5-11.1); MONO % 11.3 % (3.8-10.2); NEUT % 56.6 % (42.8-82.8); PLATELET COUNT 366 K/MM3 (134-434); PROTHROMBIN TIME (PATIENT) 14.3 SEC (9.7-13.0); RBC 3.72 M/mm3 (3.60-5.2); WHITE BLOOD COUNT 6.6 K/mm3 (4.0-10.0)
[2020-09-18 09:00] LABS: ACTIVATED PTT 26.5 SECONDS (25.2-36.5)
[2020-09-18] MEDS ORDERED: PIPERACILLIN/TAZOB 4.5 GM 4.5 GM in DEXTROSE 5%-WATER 100 ML IVPB SCH (09:00)
[2020-09-18] MEDS ORDERED: PIPERACILLIN/TAZOB 3.375 GM 3.375 GM in DEXTROSE 5%-WATER - 50 ML IVPB SCH (09:00)
[2020-09-18 09:16] LABS: POTASSIUM 3.8 mmol/L (3.5-5.1)
[2020-09-18 09:23] LABS: MAGNESIUM 2.1 mg/dL (1.8-2.4)
[2020-09-18 09:25] LABS: PHOSPHOROUS 4.5 mg/dL (2.5-4.9)
[2020-09-18 09:26] LABS: CREATININE 0.6 mg/dL (0.55-1.3)
[2020-09-18 09:27] LABS: BILIRUBIN,TOTAL 0.6 mg/dL (0.2-1)
[2020-09-18] MEDS: LACTATED RINGERS SOLUTION 1,000 ML/1,000 ML INFUS.BAG IV SCH (10:03)
[2020-09-18] MEDS ORDERED: MORPHINE SULFATE 2 MG/ML VIAL ONE (15:07)
[2020-09-18] MEDS ORDERED: morphine SULFATE 4 MG/ML VIAL ONE ×2 (16:17→21:35)
[2020-09-18] MEDS: morphine SULFATE 4 MG/ML VIAL IVPUSH PRN ×2 (16:22→21:37)
[2020-09-18] MEDS ORDERED: PIPERACILLIN/TAZOB 3.375 GM 3.375 GM/50 ML BAG IVPB ONE (18:04)
[2020-09-18] MEDS: PIPERACILLIN/TAZOB 3.375 GM 3.375 GM in DEXTROSE 5%-WATER - 50 ML IVPB SCH (18:12)
[2020-09-18] MEDS ORDERED: CASPOFUNGIN ACETATE 70 MG in SODIUM CHLORIDE 250 ML IVPB ONE (19:18)
[2020-09-19] MEDS ORDERED: PIPERACILLIN/TAZOBACTAM 3.375 GM VIAL IVPB ONE ×3 (01:05→17:56)
[2020-09-19] MEDS ORDERED: DEXTROSE 5%-WATER - 50 ML IVPB ONE ×3 (01:05→17:56)
[2020-09-19] MEDS: ACETAMINOPHEN 1000 MG/100 ML VIAL (NON FORMULARY) IVPB PRN ×2 (01:25→15:11)
[2020-09-19] MEDS: PIPERACILLIN/TAZOB 3.375 GM 3.375 GM in DEXTROSE 5%-WATER - 50 ML IVPB SCH ×3 (03:00→18:03)
[2020-09-19] MEDS: LACTATED RINGERS SOLUTION 1,000 ML/1,000 ML INFUS.BAG IV SCH ×2 (03:11→15:44)
[2020-09-19] MEDS ORDERED: PIPERACILLIN/TAZOB 4.5 GM 4.5 GM in DEXTROSE 5%-WATER 100 ML IVPB SCH (09:00)
[2020-09-19 09:03] VITALS: BMI 29.7
[2020-09-19 09:05] LABS: BASO % 0.9 % (0-2.0); EOS % 2.8 % (0-4.5); HEMATOCRIT 26.1 % (32.4-45.2); HEMOGLOBIN 8.4 GM/dL (10.7-15.3); LYMPH % 18.4 % (8-40); MCH 23.2 pg (25.7-33.7); MEAN CELL VOLUME 72.4 fl (80-96); MEAN PLT VOLUME 7.8 fl (7.5-11.1); MONO % 9.8 % (3.8-10.2); NEUT % 68.1 % (42.8-82.8); PLATELET COUNT 360 K/MM3 (134-434); RBC 3.61 M/mm3 (3.60-5.2)
[2020-09-19 09:30] LABS: POTASSIUM 3.6 mmol/L (3.5-5.1)
[2020-09-19 09:51] LABS: CALCIUM 8.3 mg/dL (8.5-10.1)
[2020-09-19 09:53] LABS: CREATININE 0.5 mg/dL (0.55-1.3)
[2020-09-19 10:01] LABS: BLOOD UREA NITROGEN 3.8 mg/dL (7-18)
[2020-09-19] MEDS: CASPOFUNGIN ACETATE 50 MG in SODIUM CHLORIDE 250 ML IVPB SCH (12:43)
[2020-09-19] MEDS ORDERED: ACETAMINOPHEN 1000 MG/100 ML VIAL (NON FORMULARY) IVPB PRN (14:19)
[2020-09-19 19:26] LABS: EPI CELLS 10 /uL (0-25.1); HYALINE CASTS 1 /uL (0-3.1); URINE APPEARANCE CLEAR; URINE BACTERIA 59 /uL (0-1359); URINE BILIRUBIN NEGATIVE (NEGATIVE); URINE COLOR YELLOW; URINE GLUCOSE (UA) NEGATIVE (NEGATIVE); URINE KETONE 3+ (NEGATIVE); URINE LEUK ESTERASE 1+ (NEGATIVE); URINE NITRITE NEGATIVE (NEGATIVE); URINE PROTEIN NEGATIVE (NEGATIVE); URINE RBC 3407 /uL (0-23.9); URINE UROBILINOGEN 0.2 mg/dL (0.2-1.0); URINE WBC 64 /uL (0-25.8)
[2020-09-20] MEDS: ACETAMINOPHEN 1000 MG/100 ML VIAL (NON FORMULARY) IVPB PRN ×2 (00:09→06:11)
[2020-09-20] MEDS ORDERED: PIPERACILLIN/TAZOBACTAM 3.375 GM VIAL IVPB ONE ×3 (01:26→17:50)
[2020-09-20] MEDS ORDERED: DEXTROSE 5%-WATER - 50 ML IVPB ONE ×3 (01:26→17:51)
[2020-09-20] MEDS: PIPERACILLIN/TAZOB 3.375 GM 3.375 GM in DEXTROSE 5%-WATER - 50 ML IVPB SCH ×3 (01:51→18:08)
[2020-09-20] MEDS: LACTATED RINGERS SOLUTION 1,000 ML/1,000 ML INFUS.BAG IV SCH ×2 (05:14→09:40)
[2020-09-20 11:04] LABS: BASO % 2.2 % (0-2.0); EOS % 3.5 % (0-4.5); HEMOGLOBIN 8.8 GM/dL (10.7-15.3); LYMPH % 25.2 % (8-40); MCH 21.7 pg (25.7-33.7); MCHC 30.2 g/dl (32.0-36.0); MEAN CELL VOLUME 71.8 fl (80-96); MEAN PLT VOLUME 9.2 fl (7.5-11.1); MONO % 14.2 % (3.8-10.2); NEUT % 54.9 % (42.8-82.8); PLATELET COUNT 233 K/MM3 (134-434); RBC 4.05 M/mm3 (3.60-5.2); RDW 23.8 % (11.6-15.6); WHITE BLOOD COUNT 5.2 K/mm3 (4.0-10.0)
[2020-09-20 11:16] LABS: POTASSIUM 4.3 mmol/L (3.5-5.1)
[2020-09-20 11:20] LABS: MAGNESIUM 1.3 mg/dL (1.8-2.4)
[2020-09-20] MEDS ORDERED: IRON SUCROSE INJECTION 200 MG in SODIUM CHLORIDE 90 ML IVPB ONE (11:21)
[2020-09-20 11:23] LABS: CREATININE 1.4 mg/dL (0.55-1.3); PHOSPHOROUS 3.1 mg/dL (2.5-4.9)
[2020-09-20 11:27] LABS: ALBUMIN 3.1 g/dl (3.4-5.0); BLOOD UREA NITROGEN 29.4 mg/dL (7-18); CALCIUM 8.1 mg/dL (8.5-10.1)
[2020-09-20] MEDS: CASPOFUNGIN ACETATE 50 MG in SODIUM CHLORIDE 250 ML IVPB SCH (11:59)
[2020-09-20] MEDS ORDERED: MAGNESIUM SULF 50% (8.12 MEQ/2 ML-1 GM VIAL) IVPB ONE (12:25)
[2020-09-20] MEDS ORDERED: PT OWN MED DRAWER 7, Y5N ONE (13:02)
[2020-09-20 13:43] LABS: ANISOCYTOSIS 1+; MACROCYTOSIS 1+; PLATELET ESTIMATE NORMAL; TARGET CELLS 1+
[2020-09-20 19:21] LABS: POTASSIUM 3.3 mmol/L (3.5-5.1)
[2020-09-20 19:22] LABS: CALCIUM 8.6 mg/dL (8.5-10.1)
[2020-09-20 19:23] LABS: MAGNESIUM 2.4 mg/dL (1.8-2.4)
[2020-09-20 19:26] LABS: CREATININE 0.5 mg/dL (0.55-1.3); PHOSPHOROUS 3.3 mg/dL (2.5-4.9)
[2020-09-20 19:27] LABS: BILIRUBIN,TOTAL 0.3 mg/dL (0.2-1); TOT PROT 7.2 g/dl (6.4-8.2)
[2020-09-20 19:56] LABS: BLOOD UREA NITROGEN 2.2 mg/dL (7-18)
[2020-09-21] MEDS: KCL 10 MEQ IVPB 10 MEQ/100 ML INFUS.BAG IVPB SCH ×4 (00:46→01:50)
[2020-09-21] MEDS ORDERED: DEXTROSE 5%-WATER - 50 ML IVPB ONE ×3 (01:02→17:30)
[2020-09-21] MEDS ORDERED: PIPERACILLIN/TAZOBACTAM 3.375 GM VIAL IVPB ONE ×3 (01:02→17:29)
[2020-09-21] MEDS: PIPERACILLIN/TAZOB 3.375 GM 3.375 GM in DEXTROSE 5%-WATER - 50 ML IVPB SCH ×3 (01:16→18:15)
[2020-09-21] MEDS: LACTATED RINGERS SOLUTION 1,000 ML/1,000 ML INFUS.BAG IV SCH (02:40)
[2020-09-21 09:47] LABS: CHLORIDE 105 mmol/L (98-107); POTASSIUM 3.4 mmol/L (3.5-5.1); SODIUM 140 mmol/L (136-145)
[2020-09-21 10:03] LABS: SGPT/ALT 12 U/L (13-61)
[2020-09-21 10:04] LABS: ALBUMIN 2.8 g/dl (3.4-5.0); TOT PROT 6.7 g/dl (6.4-8.2)
[2020-09-21 10:05] LABS: ALK PHOS 91 U/L (45-117)
[2020-09-21 10:07] LABS: CREATININE 0.4 mg/dL (0.55-1.3); SGOT/AST 12 U/L (15-37)
[2020-09-21 10:08] LABS: ANION GAP 11 MMOL/L (8-16); CO2 24 mmol/L (21-32); PHOSPHOROUS 3.4 mg/dL (2.5-4.9)
[2020-09-21 10:09] LABS: CALCIUM 8.7 mg/dL (8.5-10.1); GLUCOSE,RANDOM 67 mg/dL (74-106); MAGNESIUM 1.9 mg/dL (1.8-2.4)
[2020-09-21 10:13] LABS: BILIRUBIN,TOTAL 0.4 mg/dL (0.2-1)
[2020-09-21 10:24] LABS: BASO % 0.7 % (0-2.0); EOS % 3.8 % (0-4.5); HEMATOCRIT 26.5 % (32.4-45.2); HEMOGLOBIN 8.4 GM/dL (10.7-15.3); LYMPH % 26.7 % (8-40); MCH 22.5 pg (25.7-33.7); MCHC 31.7 g/dl (32.0-36.0); MEAN CELL VOLUME 70.9 fl (80-96); MEAN PLT VOLUME 7.6 fl (7.5-11.1); MONO % 9.1 % (3.8-10.2); NEUT % 59.7 % (42.8-82.8); PLATELET COUNT 419 K/MM3 (134-434); RBC 3.73 M/mm3 (3.60-5.2); RDW 18.2 % (11.6-15.6); WHITE BLOOD COUNT 5.1 K/mm3 (4.0-10.0)
[2020-09-21 10:56] LABS: BLOOD UREA NITROGEN < 1.0 mg/dL (7-18)
[2020-09-21] MEDS ORDERED: POTASSIUM CHLORIDE ORAL LIQUID 20 MEQ/15 ML PO ONE (15:01)
[2020-09-21 22:49] LABS: EPI CELLS 10 /uL (0-25.1); HYALINE CASTS 0 /uL (0-3.1); URINE APPEARANCE CLOUDY; URINE BACTERIA 179 /uL (0-1359); URINE BILIRUBIN NEGATIVE (NEGATIVE); URINE COLOR ORANGE; URINE GLUCOSE (UA) NEGATIVE (NEGATIVE); URINE KETONE 3+ (NEGATIVE); URINE LEUK ESTERASE TRACE (NEGATIVE); URINE NITRITE NEGATIVE (NEGATIVE); URINE PROTEIN 1+ (NEGATIVE); URINE RBC 11425 /uL (0-23.9); URINE UROBILINOGEN 0.2 mg/dL (0.2-1.0); URINE WBC 74 /uL (0-25.8)
[2020-09-22] MEDS ORDERED: DEXTROSE 5%-WATER - 50 ML IVPB ONE ×3 (00:47→17:56)
[2020-09-22] MEDS ORDERED: PIPERACILLIN/TAZOBACTAM 3.375 GM VIAL IVPB ONE ×3 (00:47→17:56)
[2020-09-22] MEDS: PIPERACILLIN/TAZOB 3.375 GM 3.375 GM in DEXTROSE 5%-WATER - 50 ML IVPB SCH ×3 (01:42→18:11)
[2020-09-22] MEDS: LACTATED RINGERS SOLUTION 1,000 ML/1,000 ML INFUS.BAG IV SCH (01:43)
[2020-09-22 08:06] LABS: FOLLICLE STIMULATING HORMONE 6.1 mIU/mL (.); LUTEINIZING HORMONE 6.6 mIU/mL (.)
[2020-09-22 08:55] LABS: BASO % 0.4 % (0-2.0); EOS % 2.7 % (0-4.5); HEMATOCRIT 26.9 % (32.4-45.2); HEMOGLOBIN 8.5 GM/dL (10.7-15.3); LYMPH % 22.7 % (8-40); MCHC 31.7 g/dl (32.0-36.0); MEAN CELL VOLUME 72.5 fl (80-96); MEAN PLT VOLUME 7.5 fl (7.5-11.1); MONO % 8.8 % (3.8-10.2); NEUT % 65.4 % (42.8-82.8); PLATELET COUNT 429 K/MM3 (134-434); RBC 3.72 M/mm3 (3.60-5.2); RDW 18.1 % (11.6-15.6)
[2020-09-22 09:21] LABS: POTASSIUM 4.2 mmol/L (3.5-5.1)
[2020-09-22 09:23] LABS: CALCIUM 9.1 mg/dL (8.5-10.1)
[2020-09-22 09:25] LABS: MAGNESIUM 1.7 mg/dL (1.8-2.4)
[2020-09-22 09:28] LABS: BILIRUBIN,TOTAL 0.4 mg/dL (0.2-1); CREATININE 0.4 mg/dL (0.55-1.3); PHOSPHOROUS 3.7 mg/dL (2.5-4.9); TOT PROT 7.2 g/dl (6.4-8.2)
[2020-09-22 09:33] LABS: BLOOD UREA NITROGEN 1.8 mg/dL (7-18)
[2020-09-22] MEDS ORDERED: MAGNESIUM OXIDE 400 MG TABLET (FP) PO ONE (11:15)
[2020-09-22] MEDS ORDERED: MAGNESIUM SULF 50% (8.12 MEQ/2 ML-1 GM VIAL) IVPB ONE (13:28)
[2020-09-22] MEDS: ACETAMINOPHEN 325 MG TABLET (FP) PO PRN (23:57)
[2020-09-23] MEDS ORDERED: DEXTROSE 5%-WATER - 50 ML IVPB ONE ×3 (03:20→17:28)
[2020-09-23] MEDS ORDERED: PIPERACILLIN/TAZOBACTAM 3.375 GM VIAL IVPB ONE ×3 (03:20→17:28)
[2020-09-23] MEDS: PIPERACILLIN/TAZOB 3.375 GM 3.375 GM in DEXTROSE 5%-WATER - 50 ML IVPB SCH ×3 (03:22→17:30)
[2020-09-23] MEDS: ACETAMINOPHEN 325 MG TABLET (FP) PO PRN (06:38)
[2020-09-23] MEDS ORDERED: MAGNESIUM OXIDE 400 MG TABLET (FP) PO ONE (15:45)
[2020-09-23 15:52] LABS: EPI CELLS 21 /uL (0-25.1); HYALINE CASTS 4 /uL (0-3.1); URINE APPEARANCE CLEAR; URINE BACTERIA 42 /uL (0-1359); URINE BILIRUBIN NEGATIVE (NEGATIVE); URINE COLOR YELLOW; URINE GLUCOSE (UA) NEGATIVE (NEGATIVE); URINE KETONE 4+ (NEGATIVE); URINE LEUK ESTERASE NEGATIVE (NEGATIVE); URINE NITRITE NEGATIVE (NEGATIVE); URINE PROTEIN 1+ (NEGATIVE); URINE RBC 2193 /uL (0-23.9); URINE WBC 26 /uL (0-25.8)
[2020-09-23] MEDS ORDERED: IRON SUCROSE INJECTION 200 MG in SODIUM CHLORIDE 90 ML IVPB ONE (16:18)
[2020-09-24] MEDS ORDERED: DEXTROSE 5%-WATER - 50 ML IVPB ONE ×3 (02:28→17:20)
[2020-09-24] MEDS ORDERED: PIPERACILLIN/TAZOBACTAM 3.375 GM VIAL IVPB ONE ×3 (02:28→17:20)
[2020-09-24] MEDS: PIPERACILLIN/TAZOB 3.375 GM 3.375 GM in DEXTROSE 5%-WATER - 50 ML IVPB SCH ×3 (02:31→18:56)
[2020-09-24 09:37] LABS: BASO % 0.5 % (0-2.0); HEMATOCRIT 27.6 % (32.4-45.2); HEMOGLOBIN 8.9 GM/dL (10.7-15.3); LYMPH % 23.5 % (8-40); MCH 23.2 pg (25.7-33.7); MEAN CELL VOLUME 72.5 fl (80-96); MEAN PLT VOLUME 7.9 fl (7.5-11.1); MONO % 9.4 % (3.8-10.2); NEUT % 63.6 % (42.8-82.8); PLATELET COUNT 465 K/MM3 (134-434); RBC 3.81 M/mm3 (3.60-5.2); RDW 18.1 % (11.6-15.6); WHITE BLOOD COUNT 5.7 K/mm3 (4.0-10.0)
[2020-09-24 09:47] LABS: POTASSIUM 3.2 mmol/L (3.5-5.1)
[2020-09-24 10:20] LABS: CALCIUM 8.8 mg/dL (8.5-10.1); MAGNESIUM 1.7 mg/dL (1.8-2.4)
[2020-09-24 10:21] LABS: TOT PROT 7.6 g/dl (6.4-8.2)
[2020-09-24 10:22] LABS: ALBUMIN 3.3 g/dl (3.4-5.0); CREATININE 0.5 mg/dL (0.55-1.3)
[2020-09-24 10:28] LABS: BILIRUBIN,TOTAL 0.4 mg/dL (0.2-1)
[2020-09-24] MEDS ORDERED: POTASSIUM CHLORIDE TABS 20 MEQ TABLET.ER (FP) PO ONE (10:30)
[2020-09-24 10:59] LABS: BLOOD UREA NITROGEN 2.5 mg/dL (7-18)
[2020-09-24] MEDS: ACETAMINOPHEN 325 MG TABLET (FP) PO PRN ×2 (14:00→21:37)
[2020-09-25] MEDS ORDERED: PIPERACILLIN/TAZOBACTAM 3.375 GM VIAL IVPB ONE ×4 (01:41→23:01)
[2020-09-25] MEDS ORDERED: DEXTROSE 5%-WATER - 50 ML IVPB ONE ×4 (01:41→23:01)
[2020-09-25] MEDS: PIPERACILLIN/TAZOB 3.375 GM 3.375 GM in DEXTROSE 5%-WATER - 50 ML IVPB SCH ×3 (02:06→18:24)
[2020-09-25] MEDS ORDERED: MAGNESIUM SULF 50% (8.12 MEQ/2 ML-1 GM VIAL) IVPB ONE (10:00)
[2020-09-25 10:11] LABS: BASO % 0.6 % (0-2.0); EOS % 2.6 % (0-4.5); HEMATOCRIT 31.1 % (32.4-45.2); LYMPH % 34.2 % (8-40); MCH 23.3 pg (25.7-33.7); MEAN CELL VOLUME 72.7 fl (80-96); MEAN PLT VOLUME 7.7 fl (7.5-11.1); MONO % 8.4 % (3.8-10.2); NEUT % 54.2 % (42.8-82.8); PLATELET COUNT 556 K/MM3 (134-434); RBC 4.28 M/mm3 (3.60-5.2); RDW 18.7 % (11.6-15.6); WHITE BLOOD COUNT 5.3 K/mm3 (4.0-10.0)
[2020-09-25 10:32] LABS: POTASSIUM 3.6 mmol/L (3.5-5.1)
[2020-09-25 10:38] LABS: CALCIUM 9.3 mg/dL (8.5-10.1)
[2020-09-25 10:39] LABS: ALBUMIN 3.5 g/dl (3.4-5.0); MAGNESIUM 1.9 mg/dL (1.8-2.4)
[2020-09-25 10:42] LABS: CREATININE 0.5 mg/dL (0.55-1.3)
[2020-09-25 10:43] LABS: BILIRUBIN,TOTAL 0.4 mg/dL (0.2-1)
[2020-09-25 10:44] LABS: TOT PROT 8.2 g/dl (6.4-8.2)
[2020-09-25 10:52] LABS: BLOOD UREA NITROGEN 2.8 mg/dL (7-18)
[2020-09-25] MEDS: ACETAMINOPHEN 325 MG TABLET (FP) PO PRN ×2 (12:05→18:33)
[2020-09-26] MEDS: PIPERACILLIN/TAZOB 3.375 GM 3.375 GM in DEXTROSE 5%-WATER - 50 ML IVPB SCH ×2 (01:03→10:35)
[2020-09-26 06:16] VITALS: BP 102/60; PULSE 92; TEMP 97.7
[2020-09-26 06:57] LABS: BASO % 0.7 % (0-2.0); EOS % 4.8 % (0-4.5); HEMATOCRIT 27.6 % (32.4-45.2); LYMPH % 30.2 % (8-40); MCH 23.5 pg (25.7-33.7); MCHC 32.7 g/dl (32.0-36.0); MEAN CELL VOLUME 71.9 fl (80-96); MEAN PLT VOLUME 7.4 fl (7.5-11.1); MONO % 8.8 % (3.8-10.2); NEUT % 55.5 % (42.8-82.8); PLATELET COUNT 501 K/MM3 (134-434); RBC 3.84 M/mm3 (3.60-5.2); WHITE BLOOD COUNT 5.3 K/mm3 (4.0-10.0)
[2020-09-26 07:20] LABS: POTASSIUM 3.4 mmol/L (3.5-5.1)
[2020-09-26 07:22] LABS: ALBUMIN 3.1 g/dl (3.4-5.0); BLOOD UREA NITROGEN 4.5 mg/dL (7-18); CALCIUM 8.9 mg/dL (8.5-10.1)
[2020-09-26 07:26] LABS: CREATININE 0.5 mg/dL (0.55-1.3)
[2020-09-26 07:27] LABS: BILIRUBIN,TOTAL 0.3 mg/dL (0.2-1); TOT PROT 7.3 g/dl (6.4-8.2)
[2020-09-26] MEDS ORDERED: PIPERACILLIN/TAZOBACTAM 3.375 GM VIAL IVPB ONE (08:29)
[2020-09-26] MEDS ORDERED: DEXTROSE 5%-WATER - 50 ML IVPB ONE (08:29)
[2020-09-26] MEDS ORDERED: POTASSIUM CHLORIDE ORAL LIQUID 20 MEQ/15 ML PO ONE (12:45)
== END 2020-09-26 13:32 | disposition home health service (06) | DRG 244 ==
LOC: JER 21:26 → JERBED 09-18 01:36 → J5S 09-18 21:45 → J7W 09-25 17:31
PROVIDERS: ADMIT Hospitalist
PROC: 0W9J30Z Drainage of Pelvic Cavity with Drainage Device, Percutaneous Approach (ICD-10-PCS; principal; 2020-09-18)
DX: K57.20 Diverticulitis of large intestine with perforation and abscess without bleeding (principal); D62 Acute posthemorrhagic anemia; N17.8 Other acute kidney failure; N39.0 Urinary tract infection, site not specified; R31.9 Hematuria, unspecified; N92.0 Excessive and frequent menstruation with regular cycle; N14.1 Nephropathy induced by other drugs, medicaments and biological substances; T50.8X5A Adverse effect of diagnostic agents, initial encounter; R74.01 Elevation of levels of liver transaminase levels; N93.8 Other specified abnormal uterine and vaginal bleeding
CPT/HCPCS: 36415; 49407; 71046-TC-FY; 74177-TC; 76856-TC; 80048; 80053; 81003; 82565; 82728; 82977; 83001; 83002; 83540; 83550; 83735; 84100; 84146; 84300; 84443; 84703; 85025; 85610; 85730; 86140; 86850; 86900; 86901; 87040; 87070; 87075; 87086; 87102; 87205; 87210; 93005; 93010; 99285-25; C9803; J0131; J0637; J1756; Q9967; U0003